=== PATIENT | female | born 1950 | race Caucasian/White ===

== ENCOUNTER 2021-11-03 14:05 | Emergency (ER) | payer MEDICARE, OTHER ==
[~2021-11-03] VITALS: Ht 157.5 cm; Wt 59.1 kg
[2021-11-03] MEDS ORDERED: OMEPRAZOLE20 MG PO (15:09)
[2021-11-03] MEDS ORDERED: LISINOPRIL20 M1 PO (15:10)
[2021-11-03] MEDS ORDERED: FEMARA2.5 MG PO (15:10)
[2021-11-03] MEDS ORDERED: HYDROCO/APAP1 TA9 PO (15:20)
[2021-11-03 16:15] VITALS: BP 150/75
== END 2021-11-03 16:20 | disposition home or self-care (01) ==
LOC: ED 14:05
PROC: 2W3CX1Z Immobilization of Right Lower Arm using Splint (ICD-10-PCS; principal; 2021-11-03)
DX: S52.501A Unspecified fracture of the lower end of right radius, initial encounter for closed fracture (principal); S52.611A Displaced fracture of right ulna styloid process, initial encounter for closed fracture; W01.0XXA Fall on same level from slipping, tripping and stumbling without subsequent striking against object, initial encounter; Y92.39 Other specified sports and athletic area as the place of occurrence of the external cause